=== PATIENT | male | born 2000 | race Caucasian/White ===

== ENCOUNTER 2021-05-13 13:21 | Inpatient (IN) | payer BC, SELFPAY ==
[2021-05-13] VITALS (12 sets, daily range): BP systolic 108–158; BP diastolic 69–126; PULSE 86–100; RESP 15–20; TEMP 36.4–37.1; O2SAT 97–100; BMI 32.3; BMI 33.2
--- NOTE | 2021-05-13 14:27 | CT_ITS ---
HISTORY: abdominal pain. TECHNIQUE: Helically acquired images were obtained of the abdomen and pelvis with IV contrast. A radiation dose optimization technique was used for this scan. IV Contrast dosage and agent: 100mL [id number]-370 IV. Oral contrast: None. # of images incl. paperwork: 435. COMPARISON: None. FINDINGS: LOWER CHEST: Lung bases clear. BOWEL: 9 mm fluid-filled and thick-walled appendix with marked right lower quadrant inflammation and an irregular 1.4 x 3 cm peripherally enhancing fluid collection at the tip of the appendix. Adjacent wall thickening of the cecum with mildly enlarged right lower quadrant mesenteric lymph nodes. Small bowel and colon nondilated. LIVER: No enhancing lesion. GALLBLADDER/BILIARY TREE: Gallbladder present. SPLEEN/PANCREAS: Homogeneous. KIDNEYS/ADRENAL GLANDS: Unremarkable. PERITONEUM: Trace free fluid in the pelvis. VESSELS: No abdominal aortic aneurysm. PELVIC ORGANS: Unremarkable. BONES: Intact. CT/Abdomen/Pelvis W IV Cont ONLY IMPRESSION: Acute appendicitis with concern for periappendiceal abscess. Inflammation of the adjacent cecum with mild reactive lymphadenopathy and free fluid. Individualized dose optimization techniques were used for this CT. at 1515 Reported and signed by: Korin Goldman MD Electronically Signed: Korin Goldman MD at 15:14 EDT Tel , Service support ,
[2021-05-13 14:28] LABS: Bacteria 0 SEEN /hpf (None Seen); Mucous, Urine 0 SEEN /hpf (<or=2+); Red Blood Cells-Urine 0 SEEN /hpf (0-5); Squamous Epithelial Cells - UA 0 SEEN /hpf (0-5); White Blood Cells 0 SEEN /hpf (0-5)
[2021-05-13 14:32] LABS: Color, Urine Yellow (Yellow); Glucose, Dipstick Normal (Normal); Ketone-Dipstick 5 mg/dl (Negative); Leukocyte Esterase-Dipstick Negative /ul (Negative); Nitrite-Dipstick Negative (Negative); Occult Blood-Urine Negative /ul (Negative); Protein-Dipstick Negative (Negative); Urine Bilirubin Dipstick Negative (Negative); Urine Clarity Clear (Clear); Urine Urobilinogen Normal (Normal)
[2021-05-13 14:35] LABS: Absolute Lymphocyte Count 1.77 X10^3/uL (0.83-4.51); Absolute Neutrophil Count 10.2 X10^3/uL (2.0-7.7); Basophil# 0.02 X10^3/uL; Basophil% 0.2 % (0-1); Eosinophils% 0.8 % (0-5); Hematocrit 44.9 % (40-54); Hemoglobin 14.8 g/dL (13.0-16.5); Lymphocyte # 1.77 X10^3/ul (0.83-4.51); Lymphocyte % 13.6 % (19-41); Mean Corpuscular Hgb 27.6 pg (27.0-32.0); Mean Corpuscular Volume 83.8 fL (80-94); Monocyte# 0.93 X10^3/uL; Monocyte% 7.1 % (0-10); NRBC Flagged by Analyzer 0 % (0-5); Neutrophil # 10.19 X10^3/uL (2.7-7.7); Platelet Count 255 K/mm3 (150-450); RBC Distribution Width CV 12.2 % (11.6-14.6); RBC Distribution Width SD 37.2 fl (35.1-43.9); Red Blood Count 5.36 M/mm3 (4.6-6.2); White Blood Count 13.1 K/mm3 (4.4-11.0)
--- NOTE | 2021-05-13 14:46 | EDS_ITS ---
HPI HPI - GI History of Present Illness Chief Complaint: Abd Pain Narrative Narrative: 20-year-old male presenting with right lower quadrant pain. He states is been there for about 4 days. He states that he did feel a wave across his epigastrium last evening. He denies fever. He states he is not nauseous. He has not complained of constipation or diarrhea. Patient seen in urgent care and sent over to the ER for evaluation given his right lower quadrant pain. He does still have an appendix. Patient status post Covid and is out of quarantine. [facility] Medical History Tonsillectomy planned Home Medications NK 05/13/21 [History Last Taken Unknown] Allergy/AdvReac Type Severity Reaction Status Date / Time No Known Allergies Allergy Verified 05/13/21 13:21 Social History Smoking Status: Never smoker ROS ROS ED Constitutional Constitutional ED: Denies chills or fever(s) ENT ENT ED: Denies rhinorrhea or sore throat Cardiovascular Cardiovascular: Denies chest pain or palpitations Respiratory/Chest Respiratory/Chest: Denies cough or dyspnea Gastrointestinal Gastrointestinal: Reports abdominal pain; Denies diarrhea, nausea or vomiting Genitourinary Genitourinary ED: Denies dysuria or hematuria Musculoskeletal Musculoskeletal: Denies arthralgias or myalgias Integumentary Denies Abrasions or rash Neurologic Neurologic: Denies headache(s) or paresthesias EXAM Physical Exam Const Vital Signs: 05/13/21 13:22 05/13/21 15:25 05/13/21 16:10 Temperature 97.9 F 98.1 F 98.1 F Temperature Source Temporal Oral Oral Pulse Rate 86 95 95 Respiratory Rate 15 16 16 Blood Pressure 143/69 H 158/81 H 158/81 H Blood Pressure Mean 93 106 106 Blood Pressure Source Monitor Blood Pressure Position Semi-Fowlers Blood Pressure Location Right Arm Pulse Ox 98 99 99 Oxygen Delivery Method Room Air Room Air Room Air Positive well nourished General Appearance ED: NAD; Negative for pallor HEENT normocephalic and atraumatic Eyes PERRL and EOMs intact bilaterally Resp normal respiratory effort and clear to auscultation bilaterally Cardio regular rate and regular rhythm GI GI Narrative: Tenderness to palpation in the right lower quadrant. Neuro Sensorium / Orientation: alert and oriented to person Psych mental status grossly normal and thought process normal Skin General Skin Exam: Negative for jaundice or pallor MDM MDM MDM Narrative Medical decision making narrative: Patient presenting with right lower quadrant abdominal pain. He declined analgesia or antiemetics. Patient had lab work which showed a 13,000 white count normal electrolytes. His LFTs are normal and lipase is normal. Urinalysis is negative. CT of the abdomen pelvis identifies an acute appendicitis with adjacent abscess. Patient was discussed with Dr. Gaona. He was given Zosyn in the ED. Dr. Gaona will take him to the OR from the ED. Impression: 1. Acute appendicitis with abscess Lab Data Labs: Laboratory Results - last 24 hr 05/13/21 05/13/21 05/13/21 14:21 14:21 14:22 WBC 13.1 H RBC 5.36 Hgb 14.8 Hct 44.9 MCV 83.8 MCH 27.6 MCHC 33.0 RDW Std Deviation 37.2 RDW Coeff of Petra 12.2 Plt Count 255 MPV 11.0 Immature Gran % (Auto) 0.300 Neut % (Auto) 78.0 H Lymph % (Auto) 13.6 L [place] % (Auto) 7.1 Eos % (Auto) 0.8 Baso % (Auto) 0.2 Absolute Neuts (auto) 10.2 H Absolute Lymphs (auto) 1.77 Nucleated RBC % 0 Sodium 138 Potassium 4.0 Chloride 105 Carbon Dioxide 28.0 Anion Gap 5 BUN 9 Creatinine 0.91 Estim Creat Clear Calc 133.70 Est GFR (MDRD) Af Amer 135 Est GFR (MDRD) Non-Af 112 BUN/Creatinine Ratio 9.8 L Glucose 90 Calcium 9.7 Total Bilirubin 0.50 AST 20 ALT 28 Alkaline Phosphatase 93 Total Protein 9.1 H Albumin 4.1 Globulin 5.0 H Albumin/Globulin Ratio 0.8 L Lipase 101 Urine Color Yellow Urine Clarity Clear Urine pH 6.0 Ur Specific [place] 1.010 Urine Protein Negative Urine Glucose (UA) Normal Urine Ketones 5 H Urine Occult Blood Negative Urine Nitrite Negative Urine Bilirubin Negative Urine Urobilinogen Normal Ur Leukocyte Esterase Negative Urine RBC 0 SEEN Urine WBC 0 SEEN Ur Squamous Epith Cells 0 SEEN Urine Bacteria 0 SEEN Urine Mucus 0 SEEN Radiography Diagnostic Testing: Radiology Impression Abdomen/Pelvis CT 05/13/21 14:27 IMPRESSION: Acute appendicitis with concern for periappendiceal abscess. Inflammation of the adjacent cecum with mild reactive lymphadenopathy and free fluid. Individualized dose optimization techniques were used for this CT. at 1515 Reported and signed by: Korin Goldman MD Electronically Signed: Korin Goldman MD at 15:14 EDT Tel , Service support , ADDENDUM: 05/13/21 1540 IMPRESSION: Acute appendicitis with concern for periappendiceal abscess. Inflammation of the adjacent cecum with mild reactive lymphadenopathy and free fluid. Individualized dose optimization techniques were used for this CT. at 1515 Reported and signed by: Korin Goldman MD N.B. : Dr. Mauricio Hitchcock DO, DO, confirmed on 05/13/2021 15:33:14 (ET) that the healthcare facility has received the radiology report. Electronically Signed: Korin Goldman MD at 15:14 EDT Tel , Service support , Discharge Plan Disposition Disposition: Acute Care Hospital [facility] Discharge Date/Time: 05/13/21 16:11
[2021-05-13 14:50] LABS: ALB/GLOB Ratio 0.8 RATIO (0.9-2.4); AST(SGOT) 20 U/L (15-37); Alanine Aminotransfer ALT/SGPT 28 U/L (16-61); Albumin, Serum 4.1 g/dL (3.2-5.0); Alkaline Phosphatase 93 U/L (45-117); Anion Gap 5 (5-15); BUN 9 mg/dL (7-18); BUN/Creat Ratio 9.8 RATIO (10-20); Calcium,Total 9.7 mg/dL (8.5-10.1); Chloride 105 mmol/L (98-107); Creatinine, Serum 0.91 mg/dL (0.70-1.30); EST Glomerular Filtration Rate 112 mL/min (>60); Est Glom Filt Rate - Afr Amer 135 mL/min (>60); Glucose 90 mg/dL (74-106); Lipase 101 U/L (73-393); Protein, Total 9.1 g/dL (6.4-8.2); Sodium Level 138 mmol/L (136-145)
--- NOTE | 2021-05-13 15:52 | EX.PCM.CON.S ---
Assessment & Plan Assessment/Plan (1) Acute appendicitis with localized peritonitis and abscess: QUALIFIERS: Appendicitis gangrene presence: unspecified whether gangrene present Appendicitis perforation presence: unspecified whether perforation present Qualified Code(s): K35.33 - Acute appendicitis with perforation and localized peritonitis, with abscess PLAN: This is a 20-year-old male with virgin abdomen who presents with 4-day history of signs and symptoms of acute appendicitis. ED work-up is further confirmatory with leukocytosis and CT imaging demonstrating evidence of acute appendicitis with probable periappendiceal abscess. Emergent laparoscopic appendectomy with possible drain placement recommended. Patient is accepting of this recommendation and wishes to proceed as described. I did inform him that given the appearance of a loculated fluid collection he will likely require perioperative antibiotics and monitoring for development of a postoperative ileus. Neuro: As needed pain Rx Pulm/CV: No acute issues FEN/GI: Maintain n.p.o. for procedure Heme/ID: Zosyn antibiotics administered Endo: No acute issues Proph: Heparin 5000 units subcu x1 preop Dispo: Transfer to OR for operation and then postoperative observation stay HPI Consult Data Date of Consult: 05/13/21 HPI Narrative HPI Narrative: MADELINE BREWER, is a 20 M who presents to [facility] ER with 4-day history of right lower quadrant abdominal pain. He states this pain woke him out of sleep and has persisted across his waistline. He states occasionally when he moves he can feel the pain radiate across his entire abdomen. He denies any associated vomiting or diarrhea. ED work-up is notable for CBC with leukocytosis of 13,[address] imaging showing acutely inflamed appendix with periappendiceal fluid concerning for abscess. [facility] Medical History Tonsillectomy planned Home Medications NK 05/13/21 [History Last Taken Unknown] Allergy/AdvReac Type Severity Reaction Status Date / Time No Known Allergies Allergy Verified 05/13/21 13:21 Social History Smoking Status: Never smoker Physical Exam Const alert, oriented x3, no apparent distress and well nourished General Appearance: anxious HEENT normocephalic Resp normal respiratory effort GI Inspection: Negative for scar Palpation: soft and tender RLQ and McBurney's point; Negative for hernia Lab / Micro Data Result Diagrams: 05/13/21 14:21 05/13/21 14:21 Labs: Laboratory Results - last 24 hr 05/13/21 14:21: WBC 13.1 H, RBC 5.36, Hgb 14.8, Hct 44.9, MCV 83.8, MCH 27.6, MCHC 33.0, RDW Std Deviation 37.2, RDW Coeff of Petra 12.2, Plt Count 255, MPV 11.0, Immature Gran % (Auto) 0.300, Neut % (Auto) 78.0 H, Lymph % (Auto) 13.6 L, [place] % (Auto) 7.1, Eos % (Auto) 0.8, Baso % (Auto) 0.2, Absolute Neuts (auto) 10.2 H, Absolute Lymphs (auto) 1.77, Nucleated RBC % 0 05/13/21 14:21: Sodium 138, Potassium 4.0, Chloride 105, Carbon Dioxide 28.0, Anion Gap 5, BUN 9, Creatinine 0.91, Estim Creat Clear Calc 133.70, Est GFR (MDRD) Af Amer 135, Est GFR (MDRD) Non-Af 112, BUN/Creatinine Ratio 9.8 L, Glucose 90, Calcium 9.7, Total Bilirubin 0.50, AST 20, ALT 28, Alkaline Phosphatase 93, Total Protein 9.1 H, Albumin 4.1, Globulin 5.0 H, Albumin/Globulin Ratio 0.8 L, Lipase 101 05/13/21 14:22: Urine Color Yellow, Urine Clarity Clear, Urine pH 6.0, Ur Specific [place] 1.010, Urine Protein Negative, Urine Glucose (UA) Normal, Urine Ketones 5 H, Urine Occult Blood Negative, Urine Nitrite Negative, Urine Bilirubin Negative, Urine Urobilinogen Normal, Ur Leukocyte Esterase Negative, Urine RBC 0 SEEN, Urine WBC 0 SEEN, Ur Squamous Epith Cells 0 SEEN, Urine Bacteria 0 SEEN, Urine Mucus 0 SEEN Radiology Impression Abdomen/Pelvis CT 05/13/21 14:27 IMPRESSION: Acute appendicitis with concern for periappendiceal abscess. Inflammation of the adjacent cecum with mild reactive lymphadenopathy and free fluid. Individualized dose optimization techniques were used for this CT. at 1515 Reported and signed by: Korin Goldman MD Electronically Signed: Korin Goldman MD at 15:14 EDT Tel , Service support , ADDENDUM: 05/13/21 1540 IMPRESSION: Acute appendicitis with concern for periappendiceal abscess. Inflammation of the adjacent cecum with mild reactive lymphadenopathy and free fluid. Individualized dose optimization techniques were used for this CT. at 1515 Reported and signed by: Korin Goldman MD N.B. : Dr. Mauricio Hitchcock DO, DO, confirmed on 05/13/2021 15:33:14 (ET) that the healthcare facility has received the radiology report. Electronically Signed: Korin Goldman MD at 15:14 EDT Tel , Service support , Charges/Coding Visit Charges Inpatient E&M: 22965 Init Hosp L2
[2021-05-13] MEDS: Heparin Injection (Vial) 5,000 UNIT/ML VIAL 5000 UNIT SC (16:50)
[2021-05-13] MEDS: Bupivacaine Mpf 0.5% 30 ML VIAL (18:21)
--- NOTE | 2021-05-13 18:23 | OP.PCM_ITS ---
Problems Associated Problem List Diagnoses (1) Acute appendicitis with localized peritonitis and abscess: Report of Operation Date of Procedure: 05/13/21 Pre-Operative Diagnosis: Acute appendicitis with periappendiceal abscess Post-Operative Diagnosis: Same Surgery/Procedure Performed:: Laparoscopic appendectomy/partial cecectomy Description of Surgical Findings:: ?Severely inflamed appendix adherent to both the terminal ileum and the cecum primarily via the mesoappendix Surgeon: Que Gaona comparison shopper: Joanne Thomson Type of Anesthesia: General/Supplemental Anesthesiologist: Frank Schaefer Specimen's removed: appendix (partial cecum) Drains: 19 Malian round Giancarlo Estimated Blood Loss (mL): 30 Description of Procedure: The patient was transferred directly from the emergency department to the operating room where he was positioned supine on the operating room table. He then underwent general endotracheal anesthetic per anesthesia. Following induction, he was administered preoperative antibiotics and DVT prophylaxis with subcutaneous heparin 5000 units. His abdomen was meanwhile prepped and draped in usual sterile fashion. Formal timeout was co nducted to confirm both patient and procedure. Procedure was begun with a Perry entry in the supraumbilical position with a 12 mm balloon trocar. Pneumoperitoneum was established at 15 mmHg. 2 additional 5 mm trochars were placed under direct laparoscopic vision in the left lower quadrant and suprapubic positions. The peritoneum was inspected to find a severely inflamed appendix that was adherent to both the terminal ileum and cecum. There was minimal free fluid in the pelvis and this appeared largely simple, serous. The adhesions between the appendix and a terminal ileum cecum were too dense to be disrupted with blunt dissection so the harmonic scalpel was used to carefully divide these adhesions taking care to stay clearly terminal ileum and its blood supply. As these adhesions were disrupted there was reinaldo spillage of a white, milky, purulent fluid into the immediate vicinity of the appendix and this was quickly suctioned free of the peritoneum with the use of the suction floor covering printer assistant device. The mesoappendix was then taken with the harmonic scalpel. At this point I appreciated significant inflammation of the appendiceal base extending onto the distal cecum and determined that we would have to perform a partial cecectomy to achieve a staple line through healthy tissue. Therefore I partially opened the line of Toldt in the right paracolic gutter to expose the avascular plane between the retroperitoneum and the cecum. This allowed adequate mobility such that we were ready to then staple. A series of 45 mm Endo FANTA thick load hung were used to cross the cecum. The resulting specimen was placed in an Endo Catch bag. The staple line was then inspected and found to be both intact and hemostatic. The pelvis and surgical area were irrigated and suctioned with the suction floor covering printer assistant. A 19 Malian Giancarlo drain was then brought on the field and was threaded from the supraumbilical port to the suprapubic port via a laparoscopic grasper and the drain was positioned in the pelvis after the suprapubic port was removed. This drain was secured at the skin using 3-0 nylon. The surgical site was inspected once more and found to be hemostatic so pneumoperitoneum was evacuated and the patient was leveled. Given the larger size of the specimen, it did not immediately come through the periumbilical port so this was sharply enlarged at the level of the fascia. The specimen was then passed off the field for permanent pathologic processing. All ports were infiltrated with half percent bupivacaine plain. The fascia of the supraumbilical port site was closed using 0 Vicryl in a [id number] technique. The skin here and then the left lower quadrant port were closed in a subcuticular fashion using 4-0 Monocryl. OpSite bandages were used as dressings. The patient was then awoken from general anesthetic without complication and was taken to PACU for the balance of his recovery. Complications None Admit VTE Documentation VTE Present on Admission: Yes VTE Mechan Device Prophylaxis: SCD's VTE Pharm Prophylaxis ordered?: Yes
[2021-05-13] MEDS: HYDROmorphone 1 MG/ML Syringe IV (21:00)
[2021-05-13] MEDS: Lactated Ringers 1,000 ML 125 ML IV (21:01)
[2021-05-13] MEDS: Acetaminophen 325 MG Tablet 650 MG PO (22:50)
[2021-05-13] MEDS: oxyCODONE 5 MG Tablet PO (22:50)
[2021-05-13] MEDS: 0.9% Saline Lock 10 ML Syringe IV (23:01)
--- NOTE | 2021-05-14 | APP_PTH ---
PATIENT: MADELINE BREWER LOC: MS2 U#:[id number] AGE/SX: 20/M ROOM: [facility] RE05/13/[address]: Dr. Que Gaona MD : 2000 BED: 1 DIS: 05/17/2021 SPEC #: [id number] RECD: 05/15/21 09:12 STATUS: RITA REDen #: [id number] KADE: 05/14/21 00:[address]: Que Gaona DEPT: SURGICAL PATHOLOGY RECD BY: Mykel Navarrete ENTERED: 05/15/21 12:05 SP TYPE: APPENDIX OTHR DR: No Primary Care Phys Tissues: Appendix, NOS Procedures: Special Stain Group I Surgery Specimen Level V GMS Stain (control) HEADER OPERATION: Laparoscopic appendectomy, partial cecectomy PRE-OP DIAGNOSIS: Acute appendicitis; inflammation of adjacent cecum with mild reactive lymphadenopathy and free fluid TISSUE SUBMITTED: Appendix with partial cecectomy MICROSCOPIC DIAGNOSIS Appendix and cecum, excision: Acute appendicitis with rupture, microabscesses, associated fibrosis and serosal adhesions. Cecum with focal acute colitis. Focal non-necrotizing granulomas, negative for fungal organisms. See comment. AM:oj 05/16/2021 COMMENT Cecal margins of excision are free of inflammation. GMS stain with matched control was used in the evaluation of this case. Case has been reviewed in consultation with Dr. Calero who concurs with the above diagnosis. IDC:[id number] MICROSCOPIC DESCRIPTION Slides are reviewed. GROSS DESCRIPTION Received in fixative is one container labeled with the patient's name and designated appendix and partial cecectomy. The specimen consists of a portion of appendix and cecum measuring 10 cm in length and 3 cm in diameter. The serosal surface is indurated and hemorrhagic. No gross perforations are identified. The external surface is inked. The specimen is longitudinally sectioned to reveal an indurated appendix measuring approximately 8 cm in length and 1.5 cm in diameter. A hemorrhagic area measuring 1.5 cm is identified in the distal one-third of the appendix. No distinct mass lesions are identified. Pin Sorter And Bagger sections are submitted as follows: 1 - cecum at margin of resection, 23??longitudinal section, serially sectioned from tip of apex to cecum. / AM:oj 05/15/21 TC:2 CPT: 35479, 12467
[2021-05-14 00:39] VITALS: BP 122/67; PULSE 101; RESP 18; TEMP 36.6; O2SAT 96
[2021-05-14] MEDS: HYDROmorphone 1 MG/ML Syringe IV (01:11)
[2021-05-14 03:51] VITALS: BP 133/84; PULSE 97; RESP 16; TEMP 36.6; O2SAT 99
[2021-05-14] MEDS: oxyCODONE 5 MG Tablet PO ×4 (03:55→20:17)
[2021-05-14] MEDS: Lactated Ringers 1,000 ML 125 ML IV ×2 (05:54→17:51)
[2021-05-14 07:32] LABS: Absolute Lymphocyte Count 1.54 X10^3/uL (0.83-4.51); Absolute Neutrophil Count 9.6 X10^3/uL (2.0-7.7); Basophil# 0.03 X10^3/uL; Basophil% 0.2 % (0-1); Eosinophil# 0.02 X10^3/uL; Eosinophils% 0.2 % (0-5); Hematocrit 38.5 % (40-54); Lymphocyte # 1.54 X10^3/ul (0.83-4.51); Lymphocyte % 12.4 % (19-41); Mean Corp Hgb Conc 33.8 g/dL (32-36); Mean Corpuscular Hgb 28.1 pg (27.0-32.0); Mean Corpuscular Volume 83.3 fL (80-94); Mean Platelet Vol. 10.8 fl (6.2-12.0); Monocyte# 1.13 X10^3/uL; Monocyte% 9.1 % (0-10); NRBC Flagged by Analyzer 0 % (0-5); Neutrophil # 9.62 X10^3/uL (2.7-7.7); Neutrophil % 77.9 % (47-70); Platelet Count 212 K/mm3 (150-450); RBC Distribution Width CV 12.3 % (11.6-14.6); RBC Distribution Width SD 37.3 fl (35.1-43.9); Red Blood Count 4.62 M/mm3 (4.6-6.2); White Blood Count 12.4 K/mm3 (4.4-11.0)
[2021-05-14 08:05] VITALS: BP 145/84; PULSE 96; RESP 16; TEMP 36.3; O2SAT 99
[2021-05-14 08:21] LABS: Anion Gap 7 (5-15); BUN 7 mg/dL (7-18); BUN/Creat Ratio 9.8 RATIO (10-20); Calcium,Total 8.8 mg/dL (8.5-10.1); Chloride 106 mmol/L (98-107); Creatinine, Serum 0.71 mg/dL (0.70-1.30); EST Glomerular Filtration Rate 149 mL/min (>60); Est Glom Filt Rate - Afr Amer 180 mL/min (>60); Estimated Creatinine Clearance 171.36 ml/min; Glucose 104 mg/dL (74-106); Magnesium 1.9 mg/dL (1.6-2.6); Phosphorus 2.8 mg/dL (2.5-4.9); Potassium 3.7 mmol/L (3.5-5.1); Sodium Level 138 mmol/L (136-145)
[2021-05-14 12:30] VITALS: BP 142/78; PULSE 94; RESP 18; TEMP 36.6; O2SAT 100
--- NOTE | 2021-05-14 13:26 | PCM.PN.SRG ---
Subjective Subjective Patient was seen and examined during AM rounds. He was actually encountered walking the halls before returning to his room. He reports that his pain control was initially difficult after the operation but is significantly better this morning. He has had several sips of water but states he is now very hungry. He does deny any bowel function. He has several questions regarding the details of his procedure which were discussed. Objective Data Objective Data Vital Signs: Vital Signs Temp Pulse Resp BP Pulse Ox 97.9 F 94 18 142/78 H 100 05/14/21 12:30 05/14/21 12:30 05/14/21 12:30 05/14/21 12:30 05/14/21 12:30 Oxygen Delivery Method Room Air Weight: 231 lb 9.6 oz Body Mass Index (BMI) 33.2 Intake & Output: Intake and Output for Last 24 Hours 05/12/21 05/13/21 05/14/21 23:59 23:59 23:59 Intake Total 3.5 / 3.5 1244.25 / 1244.25 Output Total 20 / 300 2014 Balance -16.5 / -296.5 -770.75 / -770.75 Lab / Micro Data Result Diagrams: 05/14/21 07:20 05/14/21 07:20 Labs: Laboratory Results - last 24 hr 05/13/21 14:21: WBC 13.1 H, RBC 5.36, Hgb 14.8, Hct 44.9, MCV 83.8, MCH 27.6, MCHC 33.0, RDW Std Deviation 37.2, RDW Coeff of Petra 12.2, Plt Count 255, MPV 11.0, Immature Gran % (Auto) 0.300, Neut % (Auto) 78.0 H, Lymph % (Auto) 13.6 L, [place] % (Auto) 7.1, Eos % (Auto) 0.8, Baso % (Auto) 0.2, Absolute Neuts (auto) 10.2 H, Absolute Lymphs (auto) 1.77, Nucleated RBC % 0 05/13/21 14:21: Sodium 138, Potassium 4.0, Chloride 105, Carbon Dioxide 28.0, Anion Gap 5, BUN 9, Creatinine 0.91, Estim Creat Clear Calc 133.70, Est GFR (MDRD) Af Amer 135, Est GFR (MDRD) Non-Af 112, BUN/Creatinine Ratio 9.8 L, Glucose 90, Calcium 9.7, Total Bilirubin 0.50, AST 20, ALT 28, Alkaline Phosphatase 93, Total Protein 9.1 H, Albumin 4.1, Globulin 5.0 H, Albumin/Globulin Ratio 0.8 L, Lipase 101 05/13/21 14:22: Urine Color Yellow, Urine Clarity Clear, Urine pH 6.0, Ur Specific [place] 1.010, Urine Protein Negative, Urine Glucose (UA) Normal, Urine Ketones 5 H, Urine Occult Blood Negative, Urine Nitrite Negative, Urine Bilirubin Negative, Urine Urobilinogen Normal, Ur Leukocyte Esterase Negative, Urine RBC 0 SEEN, Urine WBC 0 SEEN, Ur Squamous Epith Cells 0 SEEN, Urine Bacteria 0 SEEN, Urine Mucus 0 SEEN 05/14/21 07:20: WBC 12.4 H, RBC 4.62, Hgb 13.0, Hct 38.5 L, MCV 83.3, MCH 28.1, MCHC 33.8, RDW Std Deviation 37.3, RDW Coeff of Petra 12.3, Plt Count 212, MPV 10.8, Immature Gran % (Auto) 0.200, Neut % (Auto) 77.9 H, Lymph % (Auto) 12.4 L, [place] % (Auto) 9.1, Eos % (Auto) 0.2, Baso % (Auto) 0.2, Absolute Neuts (auto) 9.6 H, Absolute Lymphs (auto) 1.54, Nucleated RBC % 0 05/14/21 07:20: Sodium 138, Potassium 3.7, Chloride 106, Carbon Dioxide 25.0, Anion Gap 7, BUN 7, Creatinine 0.71, Estim Creat Clear Calc 171.36, Est GFR (MDRD) Af Amer 180, Est GFR (MDRD) Non-Af 149, BUN/Creatinine Ratio 9.8 L, Glucose 104, Calcium 8.8, Phosphorus 2.8, Magnesium 1.9 Radiography Diagnostic Testing: Radiology Impression Abdomen/Pelvis CT 05/13/21 14:27 IMPRESSION: Acute appendicitis with concern for periappendiceal abscess. Inflammation of the adjacent cecum with mild reactive lymphadenopathy and free fluid. Individualized dose optimization techniques were used for this CT. at 1515 Reported and signed by: Korin Goldman MD Electronically Signed: Korin Goldman MD at 15:14 EDT Tel , Service support , ADDENDUM: 05/13/21 1540 IMPRESSION: Acute appendicitis with concern for periappendiceal abscess. Inflammation of the adjacent cecum with mild reactive lymphadenopathy and free fluid. Individualized dose optimization techniques were used for this CT. at 1515 Reported and signed by: Korin Goldman MD N.B. : Dr. Mauricio Hitchcock DO, DO, confirmed on 05/13/2021 15:33:14 (ET) that the healthcare facility has received the radiology report. Electronically Signed: Korin Goldman MD at 15:14 EDT Tel , Service support , Physical Exam Const oriented x3 and no apparent distress Resp normal respiratory effort GI GI Narrative: Patient's abdomen is soft and nondistended. He is appropriately tender about his incision sites which remain covered with OpSite dressings that are clean and dry. His suprapubic drain has output of serosanguineous drainage but no purulence. Assessment & Plan Assessment/Plan (1) Acute appendicitis with localized peritonitis and abscess: QUALIFIERS: Appendicitis gangrene presence: unspecified whether gangrene present Appendicitis perforation presence: unspecified whether perforation present Qualified Code(s): K35.33 - Acute appendicitis with perforation and localized peritonitis, with abscess PLAN: This is a 20-year-old male postoperative day 1 from laparoscopic appendectomy with partial cecectomy and drain placement. Patient was confirmed to have perforated appendicitis that had walled itself off during the operation. His pain control is improved and he is now requesting a diet but has not had bowel function since his procedure. I have informed him that he is at somewhat higher risk of a postoperative ileus given the presence of reinaldo purulent fluid and our need to perform more bowel manipulation with his procedure. Neuro: As needed pain Rx Pulm/CV: No present issues FEN/GI: Advance to a clear liquid diet without carbonation and monitor for tolerance. Continue monitoring of patient's BROOKE drain. Heme/ID: Patient with some bloody output per his BROOKE drain but hemoglobin relatively stable the postoperative phase. He remains on IV Zosyn postoperatively given the presence of periappendiceal abscess. Once he is tolerating a diet, I will advance to oral antibiotics for a total course of 4 days. Endo: No current issues Proph: Ambulation encouraged. Continue SCDs Dispo: Continue inpatient stay Charges/Coding Visit Charges Inpatient E&M: 80879 Subs Hosp L2
[2021-05-14] MEDS: Senna/Docusate Sodium 1 Tablet PO (14:55)
[2021-05-14 16:39] VITALS: BP 138/86; PULSE 85; RESP 18; TEMP 36.2; O2SAT 100
[2021-05-14] MEDS: Acetaminophen 325 MG Tablet 650 MG PO (20:17)
[2021-05-14 20:39] VITALS: BP 150/96; PULSE 94; RESP 16; TEMP 36.6; O2SAT 99
[2021-05-15 02:35] VITALS: BP 139/89; PULSE 86; RESP 16; TEMP 36.6; O2SAT 100
[2021-05-15] MEDS: oxyCODONE 5 MG Tablet PO ×4 (05:05→17:36)
[2021-05-15] MEDS: Acetaminophen 325 MG Tablet 650 MG PO ×2 (05:05→21:59)
[2021-05-15] MEDS: 0.9% Saline Lock 10 ML Syringe IV (05:05)
[2021-05-15] MEDS: Lactated Ringers 1,000 ML 125 ML IV ×2 (05:05→21:59)
[2021-05-15 08:27] LABS: Absolute Lymphocyte Count 1.69 X10^3/uL (0.83-4.51); Basophil# 0.02 X10^3/uL; Basophil% 0.2 % (0-1); Eosinophil# 0.23 X10^3/uL; Eosinophils% 2.1 % (0-5); Hematocrit 38.7 % (40-54); Hemoglobin 12.9 g/dL (13.0-16.5); Lymphocyte # 1.69 X10^3/ul (0.83-4.51); Lymphocyte % 15.6 % (19-41); Mean Corp Hgb Conc 33.3 g/dL (32-36); Mean Corpuscular Hgb 28.2 pg (27.0-32.0); Mean Corpuscular Volume 84.7 fL (80-94); Mean Platelet Vol. 10.8 fl (6.2-12.0); Monocyte% 8.3 % (0-10); NRBC Flagged by Analyzer 0 % (0-5); Neutrophil # 7.97 X10^3/uL (2.7-7.7); Neutrophil % 73.5 % (47-70); Platelet Count 223 K/mm3 (150-450); RBC Distribution Width CV 12.1 % (11.6-14.6); RBC Distribution Width SD 36.9 fl (35.1-43.9); Red Blood Count 4.57 M/mm3 (4.6-6.2); White Blood Count 10.8 K/mm3 (4.4-11.0)
[2021-05-15 08:30] VITALS: BP 150/70; PULSE 98; RESP 18; TEMP 36.5; O2SAT 98
[2021-05-15 08:41] LABS: Anion Gap 7 (5-15); BUN 5 mg/dL (7-18); BUN/Creat Ratio 7.2 RATIO (10-20); Calcium,Total 8.6 mg/dL (8.5-10.1); Chloride 107 mmol/L (98-107); EST Glomerular Filtration Rate 152 mL/min (>60); Est Glom Filt Rate - Afr Amer 184 mL/min (>60); Estimated Creatinine Clearance 173.81 ml/min; Glucose 88 mg/dL (74-106); Magnesium 1.9 mg/dL (1.6-2.6); Phosphorus 2.6 mg/dL (2.5-4.9); Potassium 3.8 mmol/L (3.5-5.1); Sodium Level 137 mmol/L (136-145)
[2021-05-15] MEDS: Senna/Docusate Sodium 1 Tablet PO (09:21)
--- NOTE | 2021-05-15 10:14 | PN.SURG_ITS ---
Subjective Subjective Patient seen and examined during AM rounds. He reports some improvement in his abdominal discomfort. He did wake out of sleep with some uncontrolled breakthrough pain. He denies any bowel function but states his liquids have been tolerated without subsequent nausea or vomiting. He does remark of some new abdominal distention. Objective Data Objective Data Vital Signs: Vital Signs Temp Pulse Resp BP Pulse Ox 97.7 F L 80 18 151/43 H 96 05/15/21 08:30 05/15/21 08:30 05/15/21 08:30 05/15/21 08:30 05/15/21 08:30 Oxygen Delivery Method Room Air Weight: 231 lb 9.6 oz Body Mass Index (BMI) 33.2 Intake & Output: Intake and Output for Last 24 Hours 05/13/21 05/14/21 05/15/21 23:59 23:59 23:59 Intake Total 3.5 / 3.5 2294.25 / 2294.25 1164.5 / 1164.5 Output Total 20 / 300 2025 / 3025 1495 / 1495 Balance -16.5 / -296.5 269.25 / -730.75 -330.5 / -330.5 Lab / Micro Data Result Diagrams: 05/15/21 08:16 05/15/21 08:16 Labs: Laboratory Results - last 24 hr 05/15/21 08:16: WBC 10.8, RBC 4.57 L, Hgb 12.9 L, Hct 38.7 L, MCV 84.7, MCH 28.2, MCHC 33.3, RDW Std Deviation 36.9, RDW Coeff of Petra 12.1, Plt Count 223, MPV 10.8, Immature Gran % (Auto) 0.300, Neut % (Auto) 73.5 H, Lymph % (Auto) 15.6 L, [place] % (Auto) 8.3, Eos % (Auto) 2.1, Baso % (Auto) 0.2, Absolute Neuts (auto) 8.0 H, Absolute Lymphs (auto) 1.69, Nucleated RBC % 0 05/15/21 08:16: Sodium 137, Potassium 3.8, Chloride 107, Carbon Dioxide 23.0, Anion Gap 7, BUN 5 L, Creatinine 0.70, Estim Creat Clear Calc 173.81, Est GFR (MDRD) Af Amer 184, Est GFR (MDRD) Non-Af 152, BUN/Creatinine Ratio 7.2 L, Glucose 88, Calcium 8.6, Phosphorus 2.6, Magnesium 1.9 Physical Exam Const no apparent distress Resp normal respiratory effort GI GI Narrative: Mildly distended, appropriately tender about incisions in the right lower quadrant. Drain is serosanguineous with an output with chills minimal in volume Assessment & Plan Assessment/Plan (1) Acute appendicitis with localized peritonitis and abscess: QUALIFIERS: Appendicitis gangrene presence: unspecified whether gangrene present Appendicitis perforation presence: unspecified whether perforation present Qualified Code(s): K35.33 - Acute appendicitis with perforation and localized peritonitis, with abscess PLAN: This is a 20-year-old male postoperative day 2 from laparoscopic appendectomy with partial cecectomy and drain placement. Patient was confirmed to have perforated appendicitis that had walled itself off during the operation. His pain control is improved but we are still awaiting return of bowel function. Suspect postoperative ileus Neuro: As needed pain Rx Pulm/CV: No present issues FEN/GI: Pain at a clear liquid diet without carbonation and monitor for tolerance. Continue monitoring of patient's BROOKE drain. Heme/ID: Patient with some bloody output per his BROOKE drain but hemoglobin relatively stable the postoperative phase. He remains on IV Zosyn postoperatively given the presence of periappendiceal abscess. White count has returned to normal. Once he is tolerating a diet, I will advance to oral antibiotics for a total course of 4 days. Endo: No current issues Proph: Ambulation encouraged. Continue SCDs Dispo: Continue inpatient stay
--- NOTE | 2021-05-15 10:50 | CASEMGMT ---
RN PAPO Face to Face with patient for initial transition planning/care coordination assessment. RN CM introduced self and role at [facility]. Patient sitting in chair, alert and oriented. Patient willing to participate in assessment and is able to answer all questions appropriately. Care providers, pharmacy, and demographics verified. Patient wishes to discharge home, denies need for home health at this time. Patient states he has no further needs or concerns at this time. CM to follow for discharge planning needs that may arise. PCP: No PCP, patient provided with list of PCPs in [facility] Specialists: none Preferred Pharmacy: [facility] Insurance: [place] Prescription Benefit: yes Living Will/HPOA: none LNOK: girlfriend Living Arrangements: Patient lives with girlfriend in a 2 story apartment. Patient is independent and able to ambulate stairs. Transportation: self/girlfriend DME/HHC: Patient denies DME or previous HHC Disposition Plan: Patient to discharge home with family support and follow-up plans in place. Kenzie ZHOU, RN, CM
[2021-05-15 14:30] VITALS: BP 152/74; PULSE 98; RESP 18; TEMP 37.6; O2SAT 96
[2021-05-15 22:00] VITALS: BP 149/77; PULSE 93; RESP 18; TEMP 36.9; O2SAT 99
[2021-05-16 04:00] VITALS: BP 149/78; PULSE 90; RESP 18; TEMP 36.8; O2SAT 100
[2021-05-16] MEDS: Acetaminophen 325 MG Tablet 650 MG PO ×3 (04:15→17:20)
[2021-05-16] MEDS: Lactated Ringers 1,000 ML 125 ML IV ×3 (04:30→18:46)
[2021-05-16 08:47] VITALS: BP 142/115; PULSE 79; RESP 16; TEMP 36.6; O2SAT 99
--- NOTE | 2021-05-16 09:18 | PCM.PN.SRG ---
Subjective Subjective Patient seen and examined during AM rounds. He was woken out of sleep. He states that he is having better pain control. He also is happy to report that he had return of bowel function yesterday afternoon. This is been consistent through the night. He denies any issues with his clear liquid diet. He expresses some hunger this morning. Objective Data Objective Data Vital Signs: Vital Signs Temp Pulse Resp BP Pulse Ox 98 F 79 16 142/115 H 99 05/16/21 08:47 05/16/21 08:47 05/16/21 08:47 05/16/21 08:47 05/16/21 08:47 Oxygen Delivery Method Room Air Weight: 231 lb 9.6 oz Body Mass Index (BMI) 33.2 Intake & Output: Intake and Output for Last 24 Hours 05/14/21 05/15/21 05/16/21 23:59 23:59 23:59 Intake Total 2294.25 / 2294.25 2214.5 / 2214.5 1264.58 / 1264.58 Output Total 2025 / 3025 3205 / 3205 620 / 620 Balance 269.25 / -730.75 -990.5 / -990.5 644.58 / 644.58 Lab / Micro Data Result Diagrams: 05/15/21 08:16 05/15/21 08:16 Physical Exam Const oriented x3 and no apparent distress Resp normal respiratory effort GI soft to palpation GI Narrative: Appropriately tender around the surgical site and the incisions. The outer operative dressings in the surgical incisions are clean dry and intact beneath Steri-Strips Assessment & Plan Assessment/Plan (1) Acute appendicitis with localized peritonitis and abscess: QUALIFIERS: Appendicitis gangrene presence: unspecified whether gangrene present Appendicitis perforation presence: unspecified whether perforation present Qualified Code(s): K35.33 - Acute appendicitis with perforation and localized peritonitis, with abscess PLAN: This is a 20-year-old male postoperative day 3 from laparoscopic appendectomy with partial cecectomy and drain placement. Patient was confirmed to have perforated appendicitis that had walled itself off during the operation. Patient's pain control is improved and he has experienced return of bowel function with regular flatus since yesterday afternoon. We will plan to advance his diet to a full liquid, low residue diet this morning. If this is tolerated we could advance again to a soft diet and consider discharge as early as this evening. Neuro: As needed pain Rx (Tylenol, codeine, Dilaudid) Pulm/CV: No present issues FEN/GI: Advance to full liquid diet. Senna and MiraLAX given concurrent narcotic use. Continue monitoring of patient's BROOKE drain. Heme/ID: Patient with some bloody output per his BROOKE drain but hemoglobin relatively stable the postoperative phase. He remains on IV Zosyn postoperatively given the presence of periappendiceal abscess. White count has returned to normal. We will plan to transition to oral antibiotics if tolerating full liquid diet. Endo: No current issues Proph: Ambulation encouraged. Continue SCDs Dispo: Continue inpatient stay Charges/Coding Visit Charges Inpatient E&M: 89649 Subs Hosp L2
[2021-05-16] MEDS: Senna/Docusate Sodium 1 Tablet PO (09:19)
[2021-05-16] MEDS: Polyethylene Glycol 3350 17 GM PACKET PO (09:21)
[2021-05-16 11:31] VITALS: BP 142/86; PULSE 80; RESP 16; TEMP 37.2; O2SAT 98
--- NOTE | 2021-05-16 19:33 | PCS.PANDOC ---
PANDEMIC DOCUMENTATION INITIATED: Date: 04/03/2021 Time: 190
[2021-05-16 20:28] VITALS: BP 136/80; PULSE 78; RESP 18; TEMP 36.9; O2SAT 100
[2021-05-17] MEDS: Acetaminophen 325 MG Tablet 650 MG PO ×2 (00:19→07:46)
[2021-05-17] MEDS: Lactated Ringers 1,000 ML 125 ML IV ×2 (00:19→05:07)
[2021-05-17 00:21] VITALS: BP 131/81; PULSE 79; RESP 18; TEMP 36.6; O2SAT 100
[2021-05-17 04:58] VITALS: BP 127/72; PULSE 75; RESP 18; TEMP 36.2; O2SAT 97
[2021-05-17] MEDS: Polyethylene Glycol 3350 17 GM PACKET PO (07:47)
[2021-05-17 09:45] VITALS: BP 126/76; PULSE 76; RESP 16; TEMP 35.7; O2SAT 100
--- NOTE | 2021-05-17 12:22 | PCM.DC ---
Discharge Instructions Diet Discharge Diet: No restrictions Activity Discharge Activity: May Not Drive (While taking narcotic pain medication) and May Shower Lifting Restrictions: No lifting over 15 pounds for the first 2 weeks after surgery Dressing / Incision Call your doctor if your incision/area has: Continuous Slow Oozing, Increased Pain/ Swelling, Increased Redness, Foul Smelling Discharge and Swelling at the incision site Call your doctor if you observe: Fever of 101 or Higher, Coldness, Increased Pain and Numbness or Tingling Remove Dressing in: leave until fall off (From drain site (keep covered if showering before removal)) Cleanse incision/area with: Soap & Water Follow Up Care Please Follow Up With: Que Gaona MD When: In 1 week Test Results: Test results from this visit will be discussed in further detail at your follow-up appointment, if applicable. Discharge Plan Admission Admit Date/Time: 05/13/21 19:51 Primary Reason for Your Visit: Acute, perforated appendicitis Attending Provider: Que Gaona Primary Care Provider: Care Physician,No Primary Instructions Patient Instructions: Appendectomy Laparoscopic Dc Discharge Orders/Prescriptions Prescriptions: New oxycodone 5 mg Tablet 5 mg PO Q6H PRN (Reason: pain) 3 Days Qty: 14 RF: 0 Referrals / Follow Up: Care Physician,No Primary [Primary Care Provider] -
--- NOTE | 2021-05-17 12:27 | PCM.DC.SUM ---
Providers Date of Admission: 05/13/21 Primary Care Physician: No Primary Care Phys Reason For Visit: PERFORATED APPENDICITIS Diagnosis Discharge Diagnosis (1) Acute appendicitis with localized peritonitis and abscess: Status: Acute Code(s): K35.33 - Acute appendicitis with perforation and localized peritonitis, with abscess Qualifiers: Appendicitis gangrene presence: unspecified whether gangrene present Appendicitis perforation presence: unspecified whether perforation present Qualified Code(s): K35.33 - Acute appendicitis with perforation and localized peritonitis, with abscess Medications at Discharge Home Medications oxycodone 5 mg PO Q6H PRN 3 Days #14 tab 05/17/21 Hospital Course Operations appendectomy (With partial septectomy) Summary of Care Provided Hospital Course: Patient was admitted on 05/13/2021 after he was diagnosed with acute appendicitis with periappendiceal abscess and underwent laparoscopic appendectomy with partial cecectomy. Postoperatively he experienced a short?duration small bowel ileus but gradually his bowel function returned and his diet was advanced. He is tolerating a regular diet without subsequent nausea or vomiting on postoperative day 4. He is experiencing minimal postoperative discomfort that is managed with oral analgesics. Postoperatively, he was continued on IV Zosyn for empiric duration of 4 days due to the local contamination. His white count returned to the range of normal 2 days ago. Patient's postoperative drain was removed today after he remained afebrile and experienced complete return of his bowel function. Physical Exam Const alert and oriented x3 Resp normal respiratory effort GI GI Narrative: Soft, nondistended, appropriately tender about incisions in the right lower quadrant. BROOKE drain output was thin, straw?colored in character prior to discontinuation. The drain site was covered with a gauze. The remaining port sites are sealed and covered with operative Steri-Strips Weight / BMI Weight Weight: 231 lb 9.6 oz Body Mass Index (BMI) 33.2 ABG / Lab / Microbiology Data Result Diagrams: 05/15/21 08:16 05/15/21 08:16 D/C Instructions Discharge Diet: No restrictions Call your doctor if your incision/area has: Continuous Slow Oozing, Increased Pain/ Swelling, Increased Redness, Foul Smelling Discharge and Swelling at the incision site Call your doctor if you observe: Fever of 101 or Higher, Coldness, Increased Pain and Numbness or Tingling Cleanse incision/area with: Soap & Water Please Follow Up With: Que Gaona MD When: In 1 week Meaningful Use Info Meaningful Use Diagnoses (Choose all that apply): None applicable Discharge Plan Admission Admit Date/Time: 05/13/21 19:51 Primary Reason for Your Visit: Acute, perforated appendicitis Attending Provider: Que Gaona Primary Care Provider: Care Physician,No Primary Instructions Patient Instructions: Appendectomy Laparoscopic Dc Discharge Orders/Prescriptions Prescriptions: New oxycodone 5 mg Tablet 5 mg PO Q6H PRN (Reason: pain) 3 Days Qty: 14 RF: 0 Referrals / Follow Up: Care Physician,No Primary [Primary Care Provider] -
== END 2021-05-17 13:15 | disposition home or self-care (01) | DRG 330 ==
LOC: ED 15:04 → SDC 15:49 → ACINP 15:50 → SDC 20:36 → MS2 05-14 14:04
PROVIDERS: Admitting Provider Surgery; Emergency Provider Student in an Organized Health Care Education/Training Program; Visit Provider Surgery
PROC: 0DTJ4ZZ Resection of Appendix, Percutaneous Endoscopic Approach (ICD-10-PCS; CPT 44970; principal; 2021-05-13 16:00)
DX: K35.33 Acute appendicitis with perforation, localized peritonitis, and gangrene, with abscess (principal); K56.7 Ileus, unspecified; Z86.16 Personal history of COVID-19
CPT/HCPCS: 36415; 74177; 80048; 80053; 81001; 83690; 83735; 84100; 85025; 88304; 88307; 88312; 99284; J7030; J7050; J7120; Q9967; A4216